=== PATIENT | female | born 1990 | race Caucasian/White ===

== ENCOUNTER → 2020-10-24 07:52 | Observation (INO) | END | disposition home or self-care (01) | LOC: 1NENULAB | PROVIDERS: ADMIT Obstetrics & Gynecology; ATTEND Obstetrics & Gynecology ==

== ENCOUNTER 2020-12-09 21:24 | Inpatient (IN) ==
[2020-12-09] MEDS ORDERED: Famotidine 20 MG/2 ML VIAL IVP PRN (21:26)
[2020-12-09] MEDS ORDERED: *HR* FentaNYL (PF) 100 MCG/2 ML VIAL IVP PRN (21:26)
[2020-12-09] MEDS ORDERED: Lidocaine 1% 20 ML MDV INFILT PRN (21:26)
[2020-12-09] MEDS ORDERED: Naloxone 0.4 MG/ML INJ IVP PRN (21:26)
[2020-12-09] MEDS ORDERED: Ondansetron 4 MG/2 ML VIAL IVP PRN (21:26)
[2020-12-09] MEDS ORDERED: Metoclopramide 10 MG/2 ML VIAL IVP PRN (21:26)
[2020-12-09] MEDS ORDERED: Azithromycin 500 MG in 0.9 % Sodium Chloride 250 ML IVPB ONE (21:26)
[2020-12-09] MEDS ORDERED: Ringers Solution, Lactated 1,000 ML IVC SCH (21:30)
[2020-12-09] MEDS ORDERED: Penicillin G Potassium 5,000,000 UNIT in 0.9 % Sodium Chloride Mini Bag 100 ML IVPB ONE (21:35)
[2020-12-09 21:48] LABS: Basophils # 0.1 K/mcL (0.0-0.2); Basophils % 0.2 %; Eosinophils % 0.6 %; Hemoglobin 12.5 g/dL (11.5-15.4); Immature Granulocytes % 0.9 % (0-4); Lymphocytes # 1.5 K/mcL (0.6-4.6); Lymphocytes % 6.1 %; Mean Corpuscular HGB Conc 34.7 g/dL (31.6-35.5); Mean Corpuscular Hemoglobin 31.3 pg (28.0-33.3); Mean Platelet Volume 9.7 fL (9.4-12.4); Monocytes # 1.6 K/mcL (0.0-1.3); Monocytes % 6.5 %; Platelet Count 386 K/mcL (140-400); Segmented Neutrophils % 85.7 %; White Blood Count 24.9 K/mcL (4.3-11.1)
[2020-12-09 21:50] LABS: Eosinophils # 0.2 K/mcL (0.0-0.6); Neutrophils # 21.3 K/mcL (1.6-8.9)
[2020-12-09] MEDS ORDERED: Ropivacaine/PF 0.2% 20 ML VIAL ONE (21:53)
[2020-12-09] MEDS ORDERED: *HR* FentaNYL (PF) 100 MCG/2 ML VIAL ONE (21:53)
[2020-12-09] MEDS ORDERED: Ropivacaine/PF 0.2% 20 ML VIAL EP ONE (21:55)
[2020-12-09] MEDS ORDERED: EPHEDrine 50 MG/ML VIAL IVP PRN (21:55)
[2020-12-09] MEDS ORDERED: *HR* FentaNYL (PF) 100 MCG/2 ML VIAL EP ONE (21:55)
[2020-12-09] MEDS ORDERED: Epidural Premix (fent/bupiv) 110 ML EP ONE (21:57)
[2020-12-09] MEDS ORDERED: Epidural Premix (fent/bupiv) 110 ML EP SCH (22:00)
[2020-12-10] MEDS ORDERED: Penicillin G Potassium 2,500,000 UNIT/105 ML MLS IVPB SCH
[2020-12-10] MEDS ORDERED: Oxytocin 20 units/ LR 1000 mL 20 UNIT/1,000 ML BAG IVC SCH ×2 (02:45→07:03)
[2020-12-10] MEDS ORDERED: *HR* HYDROcodone/Acet 5/325 mg TABLET PO PRN (07:03)
[2020-12-10] MEDS ORDERED: Benzocaine/Menthol 56 GM AEROSOL SPRAY TP PRN (07:03)
[2020-12-10] MEDS ORDERED: Lidocaine/EPI 1:100k 1% 30 ML VIAL INFILT ONE (07:03)
[2020-12-10] MEDS ORDERED: Rho Immune Globulin 1,500 UNIT SYRINGE IM PRN (07:03)
[2020-12-10] MEDS ORDERED: Lanolin 7 G OINT...G. TP PRN (07:03)
[2020-12-10] MEDS: Ibuprofen 600 MG TABLET PO PRN ×3 (08:37→20:17)
[2020-12-10] MEDS: Prenatal Vit/FA 1 EACH TABLET PO SCH (08:38)
[2020-12-11 05:05] LABS: Basophils # 0.1 K/mcL (0.0-0.2); Basophils % 0.6 %; Eosinophils # 0.3 K/mcL (0.0-0.6); Eosinophils % 1.3 %; Hematocrit 30.9 % (35.3-44.9); Lymphocytes # 1.8 K/mcL (0.6-4.6); Lymphocytes % 9.1 %; Mean Corpuscular HGB Conc 33.7 g/dL (31.6-35.5); Mean Corpuscular Hemoglobin 31.3 pg (28.0-33.3); Mean Corpuscular Volume 93.1 fL (83.0-100.0); Mean Platelet Volume 9.9 fL (9.4-12.4); Monocytes % 4.8 %; Neutrophils # 16.5 K/mcL (1.6-8.9); Platelet Count 331 K/mcL (140-400); Red Blood Count 3.32 M/mcL (3.82-4.97); Red Cell Distribution Width 13.5 % (11.5-14.5); Segmented Neutrophils % 82.2 %
[2020-12-11 05:15] LABS: Hemoglobin 10.4 g/dL (11.5-15.4)
[2020-12-11] MEDS: Ibuprofen 600 MG TABLET PO PRN ×2 (07:33→13:29)
[2020-12-11] MEDS: Acetaminophen 325 MG TABLET PO PRN ×2 (07:33→13:28)
[2020-12-11] MEDS: Prenatal Vit/FA 1 EACH TABLET PO SCH (07:34)
[2020-12-11 08:16] VITALS: BP 127/84
== END 2020-12-11 15:23 | disposition home or self-care (01) | DRG 807 ==
LOC: 1NENULAB → 1NENUOBS 12-10 08:20
PROVIDERS: ADMIT Obstetrics & Gynecology; ATTEND Obstetrics & Gynecology